=== PATIENT | female | born 1980 | race Caucasian/White ===

== ENCOUNTER 2023-08-15 01:28 | Emergency (ER) | payer BC ==
[~2023-08-15] VITALS: Ht 172.7 cm; Wt 77.1 kg
[2023-08-15] MEDS ORDERED: predniSONE 20 MG TABLET ONE (02:25)
[2023-08-15] MEDS ORDERED: CYCLOBENZAPRINE 10 MG TABLET ONE (02:25)
[2023-08-15] MEDS ORDERED: KETOROLAC TROMETHAMINE INJ 30 MG/ML VIAL ONE (02:25)
[2023-08-15] MEDS ORDERED: predniSONE 50 MG TABLET PO ONE (02:30)
[2023-08-15] MEDS ORDERED: KETOROLAC TROMETHAMINE INJ 60 MG/2 ML VIAL IM ONE (02:30)
[2023-08-15] MEDS ORDERED: CYCLOBENZAPRINE 10 MG TABLET PO ONE (02:30)
[2023-08-15] MEDS ORDERED: OXYC-128 PO (03:13)
[2023-08-15] MEDS ORDERED: CYCL5TAB PO (03:13)
[2023-08-15] MEDS ORDERED: KETO10TA2 PO (03:13)
[2023-08-15] MEDS ORDERED: PRED50TA PO (03:13)
[2023-08-15] MEDS ORDERED: oxyCODONE/APAP (5/325 MG) 1 UDTAB TABLET ONE (03:20)
[2023-08-15 03:23] VITALS: BP 111/69; TEMP 98.3; O2SAT 100
[2023-08-15] MEDS ORDERED: oxyCODONE/APAP (5/325 MG) 1 UDTAB TABLET PO ONE (03:30)
== END 2023-08-15 03:27 | disposition home or self-care (01) ==
LOC: ER 01:38
DX: S23.3XXA Sprain of ligaments of thoracic spine, initial encounter (principal); S33.5XXA Sprain of ligaments of lumbar spine, initial encounter; X58.XXXA Exposure to other specified factors, initial encounter; Y93.89 Activity, other specified; Y92.89 Other specified places as the place of occurrence of the external cause; Y99.8 Other external cause status
CPT/HCPCS: 99285; 72131; 96372; 72128; J7512; J1885